=== PATIENT | female | born 1950 | race Caucasian/White ===

== ENCOUNTER 2019-11-15 16:00 | Outpatient (CLI) | payer OTHER ==
[~2019-11-15 16:00] MED LIST: KETO10TA2 PO; LISINOPRIL5 MG; MEDROL DOSE PACK PO; ORPH100T PO; TRAMADOL HCL-AP1 TAB PO; ZOCOR40 MG
== END 2019-11-15 16:05 | disposition home or self-care (01) ==
LOC: RAD 16:00
PROVIDERS: ATTEND Internal Medicine Cardiovascular Disease
DX: I10 Essential (primary) hypertension (principal)

== ENCOUNTER 2020-03-04 08:10 | Outpatient (CLI) | payer OTHER | END 2020-03-04 08:22 | disposition home or self-care (01) | LOC: RAD 08:10 → SONOGRAMA 08:15 → RAD 08:22 | PROVIDERS: ATTEND Internal Medicine Cardiovascular Disease | DX: G35 Multiple sclerosis (principal); I10 Essential (primary) hypertension; R10.84 Generalized abdominal pain; M12.89 Other specific arthropathies, not elsewhere classified, multiple sites ==

== ENCOUNTER 2021-07-08 09:58 | Outpatient (CLI) | payer OTHER | END 2021-07-08 10:01 | disposition home or self-care (01) | LOC: MRI 09:58 | PROVIDERS: ATTEND General Practice | DX: R51.9 Headache, unspecified (principal); S09.90XD Unspecified injury of head, subsequent encounter | CPT/HCPCS: 70551 ==

== ENCOUNTER 2021-08-18 10:14 | Outpatient (CLI) | payer OTHER | END 2021-08-18 10:40 | disposition home or self-care (01) | LOC: RAD 10:14 | PROVIDERS: ATTEND General Practice | DX: N64.4 Mastodynia (principal); R10.9 Unspecified abdominal pain; Z12.31 Encounter for screening mammogram for malignant neoplasm of breast ==

== ENCOUNTER 2023-05-04 10:05 | Outpatient (CLI) | payer OTHER | END 2023-05-04 10:13 | disposition home or self-care (01) | LOC: MAMO-SONO 10:05 | DX: Z12.31 Encounter for screening mammogram for malignant neoplasm of breast (principal) ==

== ENCOUNTER 2023-05-04 12:50 | Outpatient (CLI) | payer OTHER | END 2023-05-04 12:52 | disposition home or self-care (01) | LOC: NUCLEAR 12:50 | PROVIDERS: ATTEND Internal Medicine | DX: Z13.820 Encounter for screening for osteoporosis (principal); M81.0 Age-related osteoporosis without current pathological fracture ==

== ENCOUNTER 2024-04-03 11:58 | Outpatient (CLI) | payer OTHER | END 2024-04-03 12:14 | disposition home or self-care (01) | LOC: RAD 11:58 | DX: I10 Essential (primary) hypertension (principal) ==

== ENCOUNTER 2025-01-02 11:30 | Outpatient (CLI) | payer OTHER | END 2025-01-02 11:36 | disposition home or self-care (01) | LOC: TOM 11:30 | DX: R42 Dizziness and giddiness (principal) ==